=== PATIENT | female | born 1945 | race Caucasian/White ===

== ENCOUNTER 2022-10-20 07:34 | Emergency (ER) | payer MEDICARE, BC, SELFPAY ==
[2022-10-20 07:38] VITALS: BP 191/87; PULSE 72; RESP 16; TEMP 36.6; O2SAT 97; BMI 25.8
--- NOTE | 2022-10-20 08:01 | ED_ITS ---
HPI - Back Pain/Injury General: Chief Complaint: Back Pain/Injury Stated Complaint: rt hip pain Time Seen by Provider: 10/20/22 07:36 Source: patient Mode of arrival: ambulatory History of Present Illness: 77-year-old female who presents to the emergency room with complaints of back pain. She states she has had pain for the last 2 weeks she had been doing some twisting and turning is also been traveling. She has no radicular pain no dysuria urgency or frequency no hematochezia melena hematemesis or coffee-ground emesis refers the pain to the right lower lumbar spine into the SI joint on the right. No previous surgeries to her back. No history of nephrolithiasis no hematuria. No fever sweats or chills. No associated precipitating traumatic event. No history of cancers. MD elicited complaint: back pain Pertinent past history: prior back pain Exacerbating factors: movement and walking Relieving factors: supine Context: turning/twisting Associated symptoms: Deny abdominal pain, arthralgias, chills, change in bowel habits, difficulty walking, dysuria, fatigue, fecal incontinence, fever(s), hematuria, myalgias, nausea, numbness, syncope, tingling/numbness/burning, urinary frequency, urinary urgency, vomiting or weakness Review of Systems Const: Denies: fever(s), chills or fatigue ENMT: Denies: throat pain, ear or mastoid pain, nasal discharge or nasal congestion Card: Denies: syncope Resp: Denies: dyspnea, productive cough or non-productive cough GI: Denies: abdominal pain, nausea, vomiting, fecal incontinence or change in bowel habits : Denies: dysuria, urinary urgency or hematuria Skin/Breast: Denies: rash or pruritus Neuro: Denies: difficulty walking Physical Exam Const: GENERAL APPEARANCE: cooperative and comfortable ORIENTATION/CONSCIOUSNESS: Yes awake, Yes oriented to person, Yes oriented to place and Yes oriented to time HENMT: COMMON NORMALS: normocephalic, atraumatic and hearing grossly normal bilaterally HEAD & SCALP: normocephalic and atraumatic Resp: COMMON NORMALS: normal respiratory effort, No retractions, No use of accessory muscles and clear to auscultation bilaterally AUSCULTATION: clear to auscultation bilaterally Cardio: COMMON NORMALS: regular rate, regular rhythm and No murmurs present (Cardio) RATE: regular rate RHYTHM: regular rhythm GI: COMMON NORMALS: Soft to palpation and No hepatosplenomegaly present AUSCULTATION: Yes normoactive bowel sounds PALPATION: Yes Soft to palpation, No Tenderness to palpation present (GI), No Guarding due to palpation present (GI) and Yes No hepatosplenomegaly present Extremity: COMMON NORMALS: normal to inspection, capillary refill normal, no clubbing, cyanosis or edema, no calf tenderness and no pedal edema OTHER: Neurovascular is intact in lower extremities deep and reflexes +1 of 4 bilaterally sensation normal straight leg raising negative Neuro: SENSORIUM/ORIENTATION: Yes oriented to person, Yes oriented to place and Yes oriented to time Skin: COMMON NORMALS: no rashes or lesions noted GENERAL SKIN EXAM: no rashes or lesions noted Course Vital Signs: Vital signs: Vital Signs Temperature 97.9 F 10/20/22 07:38 Pulse Rate 57 L 10/20/22 10:25 Respiratory Rate 16 10/20/22 10:25 Blood Pressure 128/58 10/20/22 10:25 Pulse Oximetry 97 10/20/22 10:25 Oxygen Delivery Me thod Room Air 10/20/22 07:38 MDM - Back Pain/Injury Medical Decision Making Musculoskeletal low back pain likely worsened by some the twisting and turning she reported doing recently. He is feeling better discharged home with steroid taper NSAIDs muscle relaxer follow-up with primary care Discharge Plan Discharge Patient Disposition: Home Clinical Impression: Strain of lumbar region Condition: Stable Prescriptions: New tizanidine 4 mg tablet 4 mg PO Q6H PRN (Reason: muscle spasticity) Qty: 20 0RF Rx Instructions: do not exceed 3 doses per 24 hrs diclofenac sodium 75 mg tablet,delayed release (DR/EC) 75 mg PO Q12H PRN (Reason: pain) Qty: 20 0RF Discharge Orders: Discharge ED (Routine); Ordered 10/20/22 Ordered By: Mingo Rick Discharge Diet: Usual diet Discharge Activity: Increase activity as tolerated Patient Instructions: Acute Low Back Pain (ED), Lower Back Exercises (ED), Opioid Safety, Pain Management Activity Restrictions/Additional Instructions: Follow-up with your primary care doctor within the next week if not improving. Coding Level of Care Code ED Survey Field Technician for Kyra Ramírez
[2022-10-20] MEDS: tizanidine 4 mg Tablet PO (08:41)
[2022-10-20] MEDS: dexamethasone 10 mg/mL INJ IVP (08:44)
[2022-10-20] MEDS: ketorolac 30 mg/mL INJ 15 MG IVP (08:44)
[2022-10-20 09:22] VITALS: RESP 16
[2022-10-20] MEDS: morphine 4 mg/mL SDV 1 mL IVP (09:22)
[2022-10-20 10:25] VITALS: BP 128/58; PULSE 57; RESP 16; O2SAT 97
== END 2022-10-20 10:26 | disposition home or self-care (01) ==
PROVIDERS: Emergency Provider Family Medicine
DX: S39.012A Strain of muscle, fascia and tendon of lower back, initial encounter (principal); X50.1XXA Overexertion from prolonged static or awkward postures, initial encounter
CPT/HCPCS: 96374; 96375; 99284; J1100; J1885; J2270